=== PATIENT | male | born 1995 | race Caucasian/White ===

== ENCOUNTER 2017-03-23 08:01 | Emergency (ER) | payer OTHER ==
[~2017-03-23] VITALS: Wt 55.1 kg
[~2017-03-23 08:01] MED LIST: ACET325T33 PO; FAMO20TA18 PO
[2017-03-23 08:36] LABS: URINE BLOOD (Dip) POC 3+ (NEGATIVE)
[2017-03-23] MEDS ORDERED: CLOT30CR24 TOP (08:49)
--- NOTE | 2017-03-23 08:56 | ERD ---
ER Documentation Chief Complaint Date/Time DATE: 03/23/17 TIME: 08:50 Chief Complaint redness and swelling on tip of penis since yesterday with rash HPI Patient is a 21-year-old male who presents to the emergency department for concerns of STD exposure and redness to the tip of his penis. Patient states that his symptoms started 2 days ago. Patient states that he has "white, milky discharge." Patient does report having unprotected sex approximately 1 week ago. Patient also reports redness to the tip of his penis. Patient states he has burning pain upon cleaning the tip of his penis. Patient denies any flank pain, back pain, dysuria, frequency, urgency or hematuria. Patient denies any fevers, chills, nausea, vomiting, abdominal pain. ROS All systems reviewed and are negative except as per history of present illness. Medications Home Meds Active Scripts Clotrimazole* (Clotrimazole* AF) 1% - 30 Gm Cream.gm., 1 APPLIC TOP BID for 7 Days, #1 TUB Prov:JO WORKMAN PA-C 03/23/17 Acetaminophen* (Tylenol*) 325 Mg Tablet, 2 TAB PO Q8 Y for PAIN AND OR ELEVATED TEMP, #20 TAB Prov:ELYSE WALTON PA-C 08/23/15 Famotidine* (Famotidine*) 20 Mg Tablet, 20 MG PO BID, #30 TAB Prov:ELYSE WALTON PA-C 08/23/15 Allergies Allergies: Coded Allergies: Penicillins (Unverified Allergy, Unknown, 08/22/15) PMhx/Soc Hx Cardiac Disorders: Yes (irregular heartbeat per pt ) Hx Alcohol Use: No Hx Substance Use: No Hx Tobacco Use: No FmHx Family History: No diabetes Physical Exam Vitals Vital Signs Date Time Temp Pulse Resp B/P Pulse Ox O2 Delivery O2 Flow Rate FiO2 03/23/17 08:03 98.6 71 20 122/76 99 Physical Exam GENERAL: Well-developed, well-nourished male. Appears in no acute distress. HEAD: Normocephalic, atraumatic. EYES: Pupils are equally reactive bilaterally. EOMs grossly intact. No conjunctival erythema. ENT: Moist mucous membranes. No uvula deviation. No kissing tonsils. NECK: Supple. No meningismus. Normal range of motion of the neck. LUNG: Clear to auscultation bilaterally. No rhonchi, wheezing, rales or coarse breath sounds. HEART: Regular rate and rhythm. No murmurs, rubs or gallops. ABDOMEN: No scars, ecchymosis or rashes noted. Soft, nontender, and nondistended. Positive bowel sounds in all four quadrants. No rebound tenderness , no guarding. (-) McBurney's point tenderness. No CVA tenderness. 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 Uncircumcised penis without any lesions, masses or deformities. Penile tip appears erythematous and slightly swollen with white thick discharge noted. Normal scrotum without any masses, tenderness, swelling or erythema. No inguinal hernias. Normal cremasteric reflex. BACK: No midline tenderness. EXTREMITIES: Equal pulses bilaterally. No peripheral clubbing, cyanosis or edema. No unilateral leg swelling. NEUROLOGIC: Alert and oriented. Moving all four extremities without any difficulty. Normal speech. Steady gait. SKIN: Normal color. Warm and dry. No rashes or lesions. Results 24 hrs Laboratory Tests Test 03/23/17 08:37 Bedside Urine pH (LAB) 5.5 Bedside Urine Protein (LAB) 1+ Bedside Urine Glucose (UA) Negative Bedside Urine Ketones (LAB) Negative Bedside Urine Blood 3+ Bedside Urine Nitrite (LAB) Negative Bedside Urine Leukocyte Esterase (L Negative Current Medications Medications (Trade) Dose Ordered Sig/Mag Route PRN Reason Start Time Stop Time Status Last Admin Dose Admin Azithromycin (Zithromax) 2,000 mg ONCE ONCE PO 03/23/17 09:00 03/23/17 09:01 DC 03/23/17 08:43 Gentamicin Sulfate (Gentamicin) 240 mg ONCE ONCE IM 03/23/17 09:00 03/23/17 09:01 DC 03/23/17 08:44 Procedures/MDM MEDICAL DECISION MAKING: This is a 21-year-old male who presents to the ER for concerns of STD exposure as well as redness the tip of his penis.. Vital signs were reviewed. Patient was afebrile. Patient was not hypoxic. Physical exam findings were consistent with balanitis. It with clotrimazole cream. I explained to the patient at this time unable to rule out STD exposure. Patient did provide a urine sample. Patient's urine will be sent for gonorrhea and Chlamydia culture. Patient was notified that he will be called with results in 2-3 days. Patient requested to be treated for possible STD exposure at this time prior to receiving results. Given that patient had an allergy to penicillin, azithromycin 2 g p.o. and gentamicin 240 mg IM was given. Patient tolerated this medication without any adverse effects. Urine dip was negative for acute infection. Given these findings, the patient's presentation is most consistent with balanitis and possible STD exposure. I have a much lower clinical concern for UTI, pyelonephritis, appendicitis, epididymitis, urethritis, orchitis, prostatitis, phimosis, priapism, penile contusion, incarcerated hernia or strangulated hernia. PRESCRIPTIONS: Clotrimazole DISCHARGE: At this time, patient is stable for discharge and outpatient management. I have instructed the patient to follow-up with his/her primary care physician in 1-2 days. I have discussed with the patient the possibility of needing to see an foreign broadcast specialist for further workup and imaging if the pain persists. I have instructed the patient to promptly return to the ER for any new or worsening symptoms including increased pain, swelling, redness, warmth or fever. The patient and/or family expressed understanding of and agreement with this plan. All questions were answered. Home care instructions were provided. Departure Diagnosis: Primary Impression: Balanitis Additional Impression: Possible exposure to STD Patient Instructions: If You Think You Have an STD, Balanitis Referrals: [facility] Additional Instructions: Call your primary care doctor TOMORROW for an appointment during the next 1-2 days.See the doctor sooner or return here if your condition worsens before your appointment time. JO WORKMAN PA-C March 23, 2017 08:56
[2017-03-23] MEDS ORDERED: AZITHROMYCIN 250 MG TAB PO ONE (09:00)
[2017-03-23] MEDS ORDERED: GENTAMICIN 80 MG INJ IM ONE (09:00)
== END 2017-03-23 09:29 | disposition home or self-care (01) ==
LOC: FTE 08:01
DX: N48.1 Balanitis (principal); Z20.2 Contact with and (suspected) exposure to infections with a predominantly sexual mode of transmission
CPT/HCPCS: 81003; J1580; Z7610; 96372

== ENCOUNTER 2017-04-05 08:09 | Emergency (ER) | payer OTHER ==
[~2017-04-05] VITALS: Ht 167.6 cm; Wt 67.0 kg
[~2017-04-05 08:09] MED LIST changes: +CLOT30CR24 TOP
[2017-04-05 08:21] VITALS: Ht 167.6 cm; Wt 67.0 kg
[2017-04-05] MEDS ORDERED: LOPE2CAP PO (08:37)
--- NOTE | 2017-04-05 08:41 | ERA ---
ER Documentation Chief Complaint Date/Time DATE: 04/05/17 TIME: 08:38 Chief Complaint mid abdominal pain with n/v since yesterday HPI Patient has an otherwise pleasant plans to days of nausea and diarrhea. Patient has no specific characteristics for his diarrhea other than unformed and 3-4 times per day. Patient denies any abdominal pain, headache, difficulty urinating, blood in stool. Patient has taken omeprazole once with minimal relief. Patient has no other complaints at this time. ROS All systems reviewed and are negative except as per history of present illness. Medications Home Meds Active Scripts Loperamide Hcl* (Imodium*) 2 Mg Capsule, 2 MG PO .AFTER EA LOOSE BM Y for DIARRHEA, #10 TAB Prov:LIAM CARREON PA-C 04/05/17 Clotrimazole* (Clotrimazole* AF) 1% - 30 Gm Cream.gm., 1 APPLIC TOP BID for 7 Days, #1 TUB Prov:JO WORKMAN PA-C 03/23/17 Acetaminophen* (Tylenol*) 325 Mg Tablet, 2 TAB PO Q8 Y for PAIN AND OR ELEVATED TEMP, #20 TAB Prov:ELYSE WALTON PA-C 08/23/15 Famotidine* (Famotidine*) 20 Mg Tablet, 20 MG PO BID, #30 TAB Prov:ELYSE WALTON PA-C 08/23/15 Allergies Allergies: Coded Allergies: Penicillins (Unverified Allergy, Unknown, 08/22/15) PMhx/Soc History of Surgery: No Anesthesia Reaction: No Hx Neurological Disorder: No Hx Respiratory Disorders: No Hx Cardiac Disorders: Yes (irregular heartbeat per pt ) Hx Psychiatric Problems: No Hx Alcohol Use: No Hx Substance Use: No Hx Tobacco Use: No Physical Exam Vitals Vital Signs Date Time Temp Pulse Resp B/P Pulse Ox O2 Delivery O2 Flow Rate FiO2 04/05/17 08:21 98.1 95 18 98/67 98 Physical Exam Const: Well-appearing thin tall 21-year-old male. Head: Atraumatic Eyes: Normal Conjunctiva ENT: Normal External Ears, Nose and Mouth. Neck: Full range of motion..~ No meningismus. Resp: Clear to auscultation bilaterally Cardio: Regular rate and rhythm, no murmurs Abd: Soft, non tender, non distended. Normal bowel sounds. No McBurney's point tenderness. Negative Rovsing's and psoas sign. Skin: No petechiae or rashes Back: No midline or flank tenderness Ext: No cyanosis, or edema Neur: Awake and alert Psych: Normal Mood and Affect Procedures/MDM 21-year-old male with a chief complaint of nausea and diarrhea. Patient's physical exam is unremarkable. At this point to the patient if pain arises or if symptoms worsen to return to the emergency department immediately. At this time I will go ahead and give loperamide for antidiarrheal symptom relief and have advised if symptoms do not let up or resolved by end of treatment to return to the emergency department. At this time I have little reason to suspect appendicitis, cholecystitis, cholangitis, ischemia, herniation. Patient is stable and will be discharged at this time. Departure Diagnosis: Primary Impression: Gastroenteritis Condition: Stable Patient Instructions: Understanding Gastritis Additional Instructions: Follow up with your PCP within the next 1-3 days for a more thorough evaluation and a possible referral to a specialist. Return the the emergency department immediately if symptoms worsen or change. If you have any questions regarding medications, ask your pharmacist or us before you leave. If any adverse reactions occur while taking your medications, discontinue the treatment and return to the emergency department immediately. Take your medications as directed, and complete the entire course of treatment. LIAM CARREON PA-C April 05, 2017 08:41
== END 2017-04-05 08:58 | disposition home or self-care (01) ==
LOC: FTE 08:09
DX: K52.9 Noninfective gastroenteritis and colitis, unspecified (principal)
CPT/HCPCS: 99283

== ENCOUNTER 2018-01-07 09:49 | Emergency (ER) | END 2018-01-07 13:00 | disposition home or self-care (01) ==

== ENCOUNTER 2018-01-11 08:33 | Emergency (ER) | END 2018-01-11 10:18 | disposition home or self-care (01) ==

== ENCOUNTER 2018-06-23 15:43 | Emergency (ER) | END 2018-06-23 20:25 | disposition home or self-care (01) ==

== ENCOUNTER 2018-07-26 08:27 | Emergency (ER) | END 2018-07-26 09:43 | disposition home or self-care (01) ==

== ENCOUNTER 2018-08-27 08:19 | Emergency (ER) | END 2018-08-27 09:04 | disposition home or self-care (01) ==

== ENCOUNTER 2018-12-17 23:39 | Emergency (ER) | payer OTHER ==
[~2018-12-17] VITALS: Ht 188 cm; Wt 60.7 kg
[~2018-12-17 23:39] MED LIST changes: +ALBU8.5H8 INH; +AZIT250T PO; +BACITUD TOP; +BENZ-6 PO; +CEPH-443 PO; +HC30CR25 TOP; +IBUP-1561 PO; +LOPE2CAP PO; +PRED20TA PO; +RANI150T35 PO
[2018-12-17 23:41] VITALS: Ht 188 cm; Wt 60.7 kg
[2018-12-18] MEDS ORDERED: IBUP-1542 PO (00:38)
--- NOTE | 2018-12-18 00:39 | ERD ---
ER Documentation Chief Complaint Chief Complaint NON-RADIATING INTERMITTENT MID CHEST PAIN 07/29 X 3 DAYS HPI Patient is a 23-year-old male with no medical problems who presents with chest p ain. He said that he woke up with chest pain and had shortness of breath and felt lightheaded. It was left-sided and it comes and goes. He tried ibuprofen. He said that it is gone currently. Upon review of old medical records this is the patient's 10th visit since 2014 for pain complaints. His primary doctor is Dr. Zapata. ROS All systems reviewed and are negative except as per history of present illness. Medications Home Meds Active Scripts Ibuprofen* (Motrin*) 600 Mg Tab, 600 MG PO Q6H PRN for PAIN AND OR ELEVATED TEMP, #30 TAB Prov:TOI BARDALES MD 12/18/18 Bacitracin* (Bacitracin Oint (UD)*) 1 Applic Oint, 1 APPLIC TOP ONCE, #1 PKT APPLY TO Prov:ELYSE WALTON PA-C 08/27/18 Cephalexin* (Keflex*) 500 Mg Capsule, 500 MG PO QID for 7 Days, CAP Prov:ELYSE WALTON PA-C 08/27/18 Benzonatate* (Tessalon Perle*) 100 Mg Capsule, 100 MG PO Q8H PRN for COUGH, #14 CAP Prov:PAVEL OBWMAN 07/26/18 Prednisone* (Prednisone*) 20 Mg Tab, 60 MG PO DAILY for 4 Days, TAB Prov:PAVEL BOWMAN 07/26/18 Albuterol Sulfate* (Proair HFA*) 8.5 Gm Hfa.aer.ad, 2 PUFF INH Q4H PRN for WHEEZING AND SOB, #1 INHALER Prov:PAVEL BOWMAN 07/26/18 Azithromycin* (Zithromax*) 250 Mg Tablet, 250 MG PO .JUANITA DIRECTED, #6 TAB TAKE 500 MG (2 TABS) THE FIRST DAY THEN 250 MG (1 TAB) DAYS 2-5 Prov:PAVEL BOWMAN 07/26/18 Ranitidine Hcl* (Zantac*) 150 Mg Tablet, 150 MG PO BID, #60 TAB Prov:KARLA JASSO DO 06/23/18 Ranitidine Hcl* (Zantac*) 150 Mg Tablet, 150 MG PO BID PRN for EPIGASTRIC PAIN, #30 TAB Prov:ABELINO MONTANO PA-C 01/11/18 Hydrocortisone* Topical (Hydrocortisone* Topical) 2.5%-28.3 Gm Cream..g., 1 APPLIC TOP BID, #1 TUB Prov:ABELINO MONTANO PA-C 01/11/18 Clotrimazole* (Clotrimazole* AF) 1% - 30 Gm Cream.gm., 1 APPLIC TOP BID for 7 Days, #1 TUB Prov:ABELINO MONTANO PA-C 01/11/18 Ibuprofen* (Motrin*) 400 Mg Tab, 400 MG PO Q6, #30 TAB Prov:TOMAS CAAL PA-C 01/07/18 Loperamide Hcl* (Imodium*) 2 Mg Capsule, 2 MG PO .AFTER EA LOOSE BM PRN for DI ARRHEA, #10 TAB Prov:LIAM CARREON PA-C 04/05/17 Clotrimazole* (Clotrimazole* AF) 1% - 30 Gm Cream.gm., 1 APPLIC TOP BID for 7 Days, #1 TUB Prov:JO WORKMAN PA-C 03/23/17 Acetaminophen* (Tylenol*) 325 Mg Tablet, 2 TAB PO Q8 PRN for PAIN AND OR ELEVATED TEMP, #20 TAB Prov:ELYSE WALTON PA-C 08/23/15 Famotidine* (Famotidine*) 20 Mg Tablet, 20 MG PO BID, #30 TAB Prov:ELYSE WALTON PA-C 08/23/15 Allergies Allergies: Coded Allergies: Penicillins (Unverified Allergy, Unknown, 08/22/15) PMhx/Soc History of Surgery: No Anesthesia Reaction: No Hx Neurological Disorder: No Hx Respiratory Disorders: No Hx Cardiac Disorders: Yes (irregular heartbeat per pt ) Hx Psychiatric Problems: No Hx Miscellaneous Medical Probl: Yes (gastritis) Hx Alcohol Use: No Hx Substance Use: No Hx Tobacco Use: No Smoking Status: Never smoker FmHx Negative for Marfan syndrome Family History: No coronary disease Physical Exam Vitals Vital Signs Date Temp Pulse Resp B/P (MAP) Pulse Ox O2 O2 Flow FiO2 Time Delivery Rate 12/18/18 98.0 62 15 108/77 99 Room Air 01:10 (87) 12/17/18 59 18 113/79 99 Room Air 23:55 (90) 12/17/18 97.9 82 16 124/71 100 23:41 (88) Physical Exam Const: No acute distress Head: Atraumatic Eyes: Normal Conjunctiva ENT: Normal External Ears, Nose and Mouth. Neck: Full range of motion. No meningismus. Resp: Clear to auscultation bilaterally Cardio: Regular rate and rhythm, no murmurs Abd: Soft, non tender, non distended. Normal bowel sounds Skin: No petechiae or rashes Back: No midline or flank tenderness Ext: No cyanosis, or edema Neur: Awake and alert Psych: Normal Mood and Affect Procedures/MDM EKG read by me: Rate/Rhythm: Regular rate and rhythm at a rate of 73 Intervals: Normal Impression: No evidence of ischemia or arrhythmia Chest X-ray 1V Interpreted by me: Soft Tissue: No acute abnormalities Bones: No acute abnormalities Mediastinum/Cardiac Silhouette/Lungs: No acute abnormalities Patient is a 23-year-old male with no medical problems who presents with chest pain. EKG and chest x-ray were negative. I doubt acute coronary syndrome, pneumonia, pneumothorax, pulmonary embolism, or aortic dissection. The patient will be discharged and follow-up with Dr. Zapata within 24-48 hours for reevaluation. The patient can return sooner if symptoms worsen. Departure Diagnosis: Primary Impression: Chest pain Chest pain type: unspecified Qualified Codes: R07.9 - Chest pain, unsp ecified Condition: Fair Patient Instructions: Chest Pain, Uncertain Cause Referrals: Dr. Zapata Additional Instructions: Call your primary care doctor TOMORROW for an appointment during the next 1 WEEK.Tell the die barber that you were referred from this facility.See the doctor sooner or return here if your condition worsens before your appointment time. TOI BARDALES MD Dec 18, 2018 00:39
[2018-12-18 01:10] VITALS: BP 108/77; PULSE 62; RESP 15
== END 2018-12-18 01:10 | disposition home or self-care (01) ==
LOC: E/R 23:39
DX: R07.9 Chest pain, unspecified (principal)
CPT/HCPCS: 71045; 93005; Z7502

== ENCOUNTER 2019-04-11 11:31 | Emergency (ER) | payer OTHER ==
[~2019-04-11] VITALS: Ht 188 cm; Wt 68.0 kg
[~2019-04-11 11:31] MED LIST changes: +IBUP-1542 PO
[2019-04-11 11:35] VITALS: BP 122/64; PULSE 83; RESP 16; Ht 188 cm; Wt 68.0 kg
[2019-04-11] MEDS ORDERED: CLOT30CR24 TOP (13:15)
--- NOTE | 2019-04-11 13:30 | ERD ---
ER Documentation Chief Complaint Chief Complaint pt is bib self with c/o "tip of penis is swollen" since yesterday HPI This is a 23-year-old male with a nonsignificant past medical history presents ED with complaints of redness and swelling of head of penis since yesterday. Patient admits to a burning sensation along the foreskin. Denies fever, chills, penile discharge, testicular pain, testicular swelling. Patient is sexually active but denies any exposure to STDs. ROS All systems reviewed and are negative except as per history of present illness. Medications Home Meds Active Scripts Clotrimazole* (Clotrimazole* AF) 1% - 30 Gm Cream.gm., 1 APPLIC TOP BID for 7 Days, TUB Prov:MIRI LIANG PA-C 04/11/19 Ibuprofen* (Motrin*) 600 Mg Tab, 600 MG PO Q6H PRN for PAIN AND OR ELEVATED TEMP, #30 TAB Prov:TOI BARDALES MD 12/18/18 Bacitracin* (Bacitracin Oint (UD)*) 1 Applic Oint, 1 APPLIC TOP ONCE, #1 PKT APPLY TO Prov:ELYSE WALTON PA-C 08/27/18 Cephalexin* (Keflex*) 500 Mg Capsule, 500 MG PO QID for 7 Days, CAP Prov:ELYSE WALTON PA-C 08/27/18 Benzonatate* (Tessalon Perle*) 100 Mg Capsule, 100 MG PO Q8H PRN for COUGH, #14 CAP Prov:PAVEL BOWMAN 07/26/18 Prednisone* (Prednisone*) 20 Mg Tab, 60 MG PO DAILY for 4 Days, TAB Prov:PAVEL BOWMAN 07/26/18 Albuterol Sulfate* (Proair HFA*) 8.5 Gm Hfa.aer.ad, 2 PUFF INH Q4H PRN for WHEEZING AND SOB, #1 INHALER Prov:PAVEL BOWMAN 07/26/18 Azithromycin* (Zithromax*) 250 Mg Tablet, 250 MG PO .ZPACK DIRECTED, #6 TAB TAKE 500 MG (2 TABS) THE FIRST DAY THEN 250 MG (1 TAB) DAYS 2-5 Prov:PAVEL BOWMAN 07/26/18 Ranitidine Hcl* (Zantac*) 150 Mg Tablet, 150 MG PO BID, #60 TAB Prov:KARLA JASSO DO 06/23/18 Ranitidine Hcl* (Zantac*) 150 Mg Tablet, 150 MG PO BID PRN for EPIGASTRIC PAIN, #30 TAB Prov:ABELINO MONTANO PA-C 01/11/18 Hydrocortisone* Topical (Hydrocortisone* Topical) 2.5%-28.3 Gm Cream..g., 1 APPLIC TOP BID, #1 TUB Prov:ABELINO MONTANO PA-C 01/11/18 Clotrimazole* (Clotrimazole* AF) 1% - 30 Gm Cream.gm., 1 APPLIC TOP BID for 7 Days, #1 TUB Prov:ABELINO MONTANO PA-C 01/11/18 Ibuprofen* (Motrin*) 400 Mg Tab, 400 MG PO Q6, #30 TAB Prov:TOMAS CAAL PA-C 01/07/18 Loperamide Hcl* (Imodium*) 2 Mg Capsule, 2 MG PO .AFTER EA LOOSE BM PRN for DIARRHEA, #10 TAB Prov:LIAM CARREON PA-C 04/05/17 Clotrimazole* (Clotrimazole* AF) 1% - 30 Gm Cream.gm., 1 APPLIC TOP BID for 7 Days, #1 TUB Prov:JO WORKMAN PA-C 03/23/17 Acetaminophen* (Tylenol*) 325 Mg Tablet, 2 TAB PO Q8 PRN for PAIN AND OR ELEVATED TEMP, #20 TAB Prov:ELYSE WALTON PA-C 08/23/15 Famotidine* (Famotidine*) 20 Mg Tablet, 20 MG PO BID, #30 TAB Prov:ELYSE WALTON PA-C 08/23/15 Allergies Allergies: Coded Allergies: Penicillins (Unverified Allergy, Unknown, 08/22/15) PMhx/Soc History of Surgery: No Anesthesia Reaction: No Hx Neurological Disorder: No Hx Respiratory Disorders: No Hx Cardiac Disorders: Yes (irregular heartbeat per pt ) Hx Psychiatric Problems: No Hx Miscellaneous Medical Probl: Yes (gastritis) Hx Alcohol Use: No Hx Substance Use: No Hx Tobacco Use: No FmHx Family History: No diabetes Physical Exam Vitals Vital Signs Date Temp Pulse Resp B/P (MAP) Pulse Ox O2 O2 Flow FiO2 Time Delivery Rate 04/11/19 98.3 83 16 122/64 98 11:35 (83) Physical Exam Physical Exam Vitals signs: Reviewed by me. General: Well developed, well nourished, in no acute distress. Patient is awake and alert. Head: Normocephalic, atraumatic. Eyes: Normal conjunctiva, Pupils PERRLA, EOM intact grossly ENT: Pharynx is clear, Moist mucous membranes, external ears, nose and mouth normal Neck: Supple, no masses, lymphadenopathy or JVD Respiratory: Clear to auscultation bilaterally with no wheezing, rhonchi, rales, no distress Cardiovascular: RRR, no murmurs, rubs, or gallops Abdominal: Soft, non-tender, non-distended, no peritoneal signs Exam: Patient is uncircumcised male, no ulcerations noted on penis or scrotum, I am able to fully retract foreskin and there is mild erythema of the penile head and along the foreskin, no discharge noted, Scrotum: Normal Hernia: None Testes/Epid: Non-tender w/ normal lie Cremaster: Reflex intact Lymph: No inguinal lymphadenopathy Discharge: None Back: No midline tenderness. Neurologic: Alert and oriented, moving all extremities, normal speech, no focal weakness, no cerebellar signs. Normal mentation Skin: warm and dry, No rash Psych: Normal mood Results 24 hrs Laboratory Tests Test 04/11/19 13:30 Urine Color YELLOW Urine Clarity SLIGHTLY CLOUDY Urine pH 5.0 Urine Specific [place] 1.029 Urine Ketones TRACE mg/dL Urine Nitrite NEGATIVE mg/dL Urine Bilirubin NEGATIVE mg/dL Urine Urobilinogen NEGATIVE mg/dL Urine Leukocyte Esterase NEGATIVE [place]/ul Urine Microscopic RBC 1 /HPF Urine Microscopic WBC 3 /HPF Urine Mucus MODERATE /HPF Urine Hemoglobin NEGATIVE mg/dL Urine Glucose NEGATIVE mg/dL Urine Total Protein NEGATIVE mg/dl Procedures/MDM LAB INTERPRETATION: labs reviewed ER COURSE:. The patient was stable throughout ED course. I kept the patient and/or family informed of laboratory and diagnostic imaging results throughout the emergency room course. The patient was promptly evaluated and a treatment plan was devised based on H&P and other data. This plan was discussed with the patient who agreed and had no further questions or concerns prior to discharge. MEDICAL DECISION MAKIN-year-old male presents ED with complaints of penile head redness and swelling since yesterday. Physical examination is remarkable for some faint erythema at the penile head and foreskin but there is no swelling noted. The foreskin is easily retractable. This is likely balanitis. History and physical examination other data not consistent with emergent processes including but not limited to paraphimosis, phimosis, priapism, testicular torsion, fourniers gangrene, pr ostatitis, among other genitourinary emergencies. Patient's vitals are stable he can be managed with close outpatient follow-up. Advised patient follow-up with primary care in the next 48 hours. Return to ED with any worsening symptoms. DISPOSITION PLAN: We discussed follow up with the patient's primary care doctor within 24 to 48 hours. Patient counseled regarding my diagnostic impression and care plan. Prior to discharge all questions answered. Pt agrees with treatment plan and understands strict return precautions. Precautionary instructions provided including instructions to return to the ER if not improving or for any worsening or changing symptoms or concerns. SPECIALIST FOLLOW UP RECOMMENDED: None Patient has been advised to follow up with primary care in 1-2 days. Disclaimer: Inadvertent spelling and grammatical errors are likely due to EHR/dictation software use and do not reflect on the overall quality of patient care. Also, please note that the electronic time recorded on this note does not necessarily reflect the actual time of the patient encounter. Departure Diagnosis: Primary Impression: Balanitis Condition: Stable Patient Instructions: Balanitis Referrals: [facility] YOU HAVE RECEIVED A MEDICAL SCREENING EXAM AND THE RESULTS INDICATE THAT YOU DO NOT HAVE A CONDITION THAT REQUIRES URGENT TREATMENT IN THE EMERGENCY DEPARTMENT. FURTHER EVALUATION AND TREATMENT OF YOUR CONDITION CAN WAIT UNTIL YOU ARE SEEN IN YOUR DOCTORS OFFICE WITHIN THE NEXT 1-2 DAYS. IT IS YOUR RESPONSIBILITY TO MAKE AN APPOINTMENT FOR FOLOW-UP CARE. IF YOU HAVE A PRIMARY DOCTOR --you should call your primary doctor and schedule an appointment IF YOU DO NOT HAVE A PRIMARY DOCTOR YOU CAN CALL OUR PHYSICIAN REFERRAL HOTLINE AT IF YOU CAN NOT AFFORD TO SEE A PHYSICIAN YOU CAN CHOSE FROM THE FOLLOWING [facility] CL[facility]ICS [facility] [address] [facility]. [facility] [address] [facility] [address] [facility] [address] [facility] [address] [facility] [address] [facility]. [facility] [address] Additional Instructions: Patient advised to return to the ED immediately for new or worsening symptoms. Patient advised to follow up with primary care provider in the next 24-48 hours. Patient verbalized understanding and agrees with treatment plan and course of action. If patient has no primary care they may follow up with one of the community clinics listed on the following page or one of the options listed below [facility] + [facility] [address] [place] [id number] or [facility] [address] [place] [address] or [facility] [address] [place] [address] MIRI LIANG PA-C April 11, 2019 13:30
== END 2019-04-11 15:57 | disposition home or self-care (01) ==
LOC: FTE 11:31
DX: N48.1 Balanitis (principal)
CPT/HCPCS: 81001; 87086; Z7502; 81003; 99283